=== PATIENT | male | born 1930 | race Caucasian/White ===

== ENCOUNTER 2016-07-24 12:08 | Observation (INO) | payer MEDICARE, OTHER ==
[~2016-07-24] VITALS: Ht 170.2 cm; Wt 70.3 kg
[2016-07-24] MEDS ORDERED: COUMADIN 1MG1 MG/TAB (12:38)
[2016-07-24 13:47] LABS: BASO # 0.1 (0.0-0.2); BASO % 0.8 % (0.0-2.0); EOS # 0.2 (0.0-0.7); EOS % 1.6 % (0-4.0); GRAN # 8.8 (1.4-6.5); GRAN % 72.5 % (42.2-75.2); HEMATOCRIT 40.1 % (42.0-52.0); HEMOGLOBIN 13.4 g/dl (13.5-18.0); LYMPH # 1.7 (1.2-3.4); LYMPH % 14.1 % (20.0-51.0); MEAN CELL VOLUME 89 fl (80.0-100.0); MEAN CORPUSCULAR HEMOGLOBIN 30 pg (27.0-31.0); MEAN CORPUSCULAR HGB CONC 33 g/dl (33.0-37.0); MEAN PLATELET VOLUME 9.2 fl (7.4-10.4); MONO # 1.3 (0.1-0.6); MONO % 10.5 % (1.7-9.3); PLATELET COUNT 299 K/mm3 (130-400); RED BLOOD COUNT 4.49 M/mm3 (4.20-5.60); REDCELL DISTRIBUTION WIDTH-CV 13.4 % (11.5-14.5); WHITE BLOOD COUNT 12.1 K/mm3 (4.8-10.8)
[2016-07-24 13:51] LABS: PROTHROMBIN TIME 38.4 SECONDS (9.7-12.8)
[2016-07-24 14:00] LABS: INR 3.3 (0.8-3.0)
[2016-07-24 14:14] LABS: ADJUSTED CALCIUM 10.3 mg/dL (8.4-10.2); ALBUMIN 4.7 gm/dL (3.5-5.0); BILIRUBIN,TOTAL 1.1 mg/dL (0.0-1.0); CALCIUM 10.9 mg/dL (8.4-10.2); CREATININE, serum 1.65 mg/dL (0.66-1.25); POTASSIUM 4.6 mmol/L (3.4-5.0); TOTAL PROTEIN 8.4 gm/dL (6.4-8.2)
[2016-07-24] MEDS ORDERED: ZOCOR 40MG40 MG PO (15:49)
[2016-07-24] MEDS ORDERED: PRILOSEC 20MG20 MG PO (15:50)
[2016-07-24] MEDS ORDERED: THEO-24 30300 MG/CAP PO (15:50)
[2016-07-24] MEDS ORDERED: COREG 25MG25 MG/TAB PO (15:51)
[2016-07-24] MEDS ORDERED: PROAIR HFA0.09 MG/AC IH (15:51)
[2016-07-24] MEDS ORDERED: COUMADIN 1MG1 MG/TAB PO (15:52)
[2016-07-24] MEDS ORDERED: COUMADIN 2MG2 MG/TAB PO ×2 (15:52→16:47)
[2016-07-24] MEDS ORDERED: ALDACTONE 25MG25 M1 PO (15:53)
[2016-07-24] MEDS ORDERED: HCTZ 25MG TAB25 MG PO (15:53)
[2016-07-24] MEDS ORDERED: MAGNESIUM250 M1 PO (16:19)
[2016-07-24] MEDS ORDERED: QUESTRAN4 GM/9 GM PO (16:20)
[2016-07-24 16:27] VITALS: BP 203/87; PULSE 73; TEMP 98.2
[2016-07-24 20:12] VITALS: BP 164/76; PULSE 73; TEMP 98.3
[2016-07-24 23:25] VITALS: BP 180/82; PULSE 105; TEMP 98.1
[2016-07-24 23:40] VITALS: BP 186/68; PULSE 76; TEMP 98.1
[2016-07-25] VITALS (8 sets, daily range): BP systolic 111–195; BP diastolic 46–82; PULSE 75–108; TEMP 96.8–98.7
[2016-07-25 07:13] LABS: PROTHROMBIN TIME 22.8 SECONDS (9.7-12.8)
[2016-07-25 07:20] LABS: CALCIUM 10.6 mg/dL (8.4-10.2); CREATININE, serum 1.51 mg/dL (0.66-1.25); MAGNESIUM 1.4 mg/dL (1.6-2.3); POTASSIUM 4.1 mmol/L (3.4-5.0)
== END 2016-07-25 17:57 | disposition home or self-care (01) ==
LOC: COL.ER 12:08 → MEDICAL 14:29
PROVIDERS: Family Medicine; Internal Medicine
DX: R04.0 Epistaxis (principal); I48.2 Chronic atrial fibrillation; Z79.01 Long term (current) use of anticoagulants; I25.10 Atherosclerotic heart disease of native coronary artery without angina pectoris; Z95.1 Presence of aortocoronary bypass graft; E78.5 Hyperlipidemia, unspecified; I10 Essential (primary) hypertension; J44.9 Chronic obstructive pulmonary disease, unspecified
CPT/HCPCS: G0378; J0360; J1170; J3430; J7050